=== PATIENT | male | born 1990 | race Two or more races ===

== ENCOUNTER 2016-05-21 08:17 | Emergency (ER) | payer MEDICAID ==
[2016-05-21 08:21] VITALS: BP 121/72; PULSE 96; RESP 20; TEMP 97.5; O2SAT 94
[2016-05-21] MEDS ORDERED: OXYCODONE/APAP 5/325 TAB PO ONE (08:27)
[2016-05-21] MEDS ORDERED: TDAP ADULT 0.5 ML INJ (BOOSTRIX) IM ONE (08:28)
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
[2016-05-21] MEDS ORDERED: TETANUS, DIPHTHERIA TOX (7YR+) 0.5 ML INJ IM ONE (08:55)
== END 2016-05-21 09:38 | disposition home or self-care (01) ==
PROC: 3E0234Z Introduction of Serum, Toxoid and Vaccine into Muscle, Percutaneous Approach (ICD-10-PCS; principal; 2016-05-21)
DX: S63.92XA Sprain of unspecified part of left wrist and hand, initial encounter (principal); F17.200 Nicotine dependence, unspecified, uncomplicated; Z23 Encounter for immunization; W22.8XXA Striking against or struck by other objects, initial encounter

== ENCOUNTER 2016-05-23 17:48 | Inpatient (IN) | payer MEDICAID ==
[2016-05-23] MEDS ORDERED: HYDROmorphONE/DILAUDID 1 MG/ML SYR IVP ONE ×3 (19:29→23:43)
[2016-05-23] MEDS ORDERED: NS 1,000 ML IV ONE (19:29)
[2016-05-23] MEDS ORDERED: ONDANSETRON 4 MG/2 ML VIAL IVP ONE (19:29)
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
[2016-05-23 20:07] LABS: % IMMATURE GRANULYOCYTES 0.5 % (0.0-1.1); ABSOLUTE IMMATURE GRANULOCYTES 0.04 10^3/uL (0.00-0.10); ADD DIFF? NO; ADD MORPH? NO; ADD SCAN? NO; ATYPICAL LYMPHOCYTE FLAG 0 (0-99); FRAGMENT RBC FLAG 0 (0-99); HEMATOCRIT 44.5 % (40.0-51.0); LEFT SHIFT FLG 0 (0-99); LIPEMIA HEMOLYSIS FLAG 90 (0-99); MEAN CELL HEMOGLOBIN 31.7 pg (27.9-34.1); MEAN CELL VOLUME 88.1 fL (81.5-99.8); MEAN PLATELET VOLUME 11.1 fL (8.7-11.7); PLATELET CLUMPS FLAG 0 (0-99); PLATELET COUNT 203 10^3/uL (150-400); RED BLOOD CELL COUNT 5.05 10^6/uL (4.40-6.38); RED CELL DISTRIBUTION WIDTH 12.9 % (11.5-15.2)
[2016-05-23 20:38] LABS: ANION GAP 14 mEq/L (8-16); C-REACTIVE PROTEIN 49.2 mg/L (<10.0); CALCIUM 9.5 mg/dL (8.5-10.4); CARBON DIOXIDE 26 mEq/l (22-31); CHLORIDE 99 mEq/L (97-110); CREATININE 0.9 mg/dL (0.7-1.3); GLOMERULAR FILTRATION RATE > 60; GLUCOSE 99 mg/dL (70-100); SODIUM 139 mEq/L (134-144); SPECIMEN HEMOLYSIS 145
[2016-05-23 20:39] LABS: POTASSIUM 3.9 mEq/L (3.3-5.0)
[2016-05-23 20:53] LABS: SEDIMENTATION RATE 18 MM/HR (0-15)
[2016-05-23] MEDS ORDERED: GADOBUTROL 10 ML VIAL IVP ONE (21:29)
[2016-05-23] MEDS ORDERED: VANCOMYCIN HCL/NORMAL SALINE 250 ML IV ONE (22:06)
[2016-05-23] MEDS ORDERED: PIPERACILLIN/TAZO 4.5 GM/DEX 100 ML IV ONE (22:06)
[2016-05-23] MEDS ORDERED: HYDROmorphONE/DILAUDID 1 MG/ML SYR ONE (22:18)
[2016-05-23] MEDS ORDERED: LORazepam 0.5 MG TAB PO PRN (23:54)
[2016-05-23] MEDS ORDERED: HYDROmorphONE/DILAUDID 1 MG/ML SYR IVP PRN (23:54)
[2016-05-23] MEDS ORDERED: ONDANSETRON 4 MG/2 ML VIAL IVP PRN (23:54)
[2016-05-23] MEDS ORDERED: ONDANSETRON DISINTEGRATING 4 MG TAB PO PRN (23:54)
[2016-05-24] MEDS: oxyCODONE IR 5 MG TAB PO PRN ×4 (00:58→19:44)
[2016-05-24] MEDS: HYDROmorphONE/DILAUDID 1 MG/ML SYR IVP PRN ×7 (01:30→23:51)
[2016-05-24] MEDS: NS 1,000 ML IV SCH ×2 (03:07→16:31)
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
[2016-05-24] MEDS: PIPERACILLIN/TAZO 3.375 GM/DEX 50 ML IV SCH ×4 (05:52→23:51)
[2016-05-24 06:20] LABS: % IMMATURE GRANULYOCYTES 0.4 % (0.0-1.1); ABSOLUTE IMMATURE GRANULOCYTES 0.03 10^3/uL (0.00-0.10); ADD DIFF? NO; ADD MORPH? NO; ADD SCAN? NO; ATYPICAL LYMPHOCYTE FLAG 0 (0-99); FRAGMENT RBC FLAG 0 (0-99); HEMATOCRIT 39.6 % (40.0-51.0); HEMOGLOBIN 13.5 g/dL (13.7-17.5); LEFT SHIFT FLG 0 (0-99); LIPEMIA HEMOLYSIS FLAG 90 (0-99); MEAN CELL HEMOGLOBIN 30.6 pg (27.9-34.1); MEAN CELL HEMOGLOBIN CONCENTR. 34.1 g/dL (32.4-36.7); MEAN CELL VOLUME 89.8 fL (81.5-99.8); MEAN PLATELET VOLUME 10.4 fL (8.7-11.7); PLATELET CLUMPS FLAG 10 (0-99); PLATELET COUNT 182 10^3/uL (150-400); RED BLOOD CELL COUNT 4.41 10^6/uL (4.40-6.38); RED CELL DISTRIBUTION WIDTH 12.9 % (11.5-15.2)
[2016-05-24 06:29] LABS: ANION GAP 7 mEq/L (8-16); CALCIUM 8.8 mg/dL (8.5-10.4); CARBON DIOXIDE 26 mEq/l (22-31); CHLORIDE 106 mEq/L (97-110); GLOMERULAR FILTRATION RATE > 60; GLUCOSE 99 mg/dL (70-100); POTASSIUM 4.7 mEq/L (3.5-5.2); SODIUM 139 mEq/L (134-144)
[2016-05-24 06:33] LABS: INR 1.09 (0.83-1.16)
[2016-05-24 06:34] LABS: APTT 34.3 SEC (23.0-38.0)
--- NOTE | 2016-05-24 14:40 | WOCRNPDOC ---
WOCRN Advanced Assessment Note - Skin Integrity Problem, Advanced Assess Left Posterior Hand Dressing Type: Adaptic Touch, Allevyn Life Exudate Amount: Scant Exudate Color: Red Exudate Characteristic(s): Serosanguinous Mikayla Wound Tissue: Erythema, Swollen Mikayla Wound Swelling: Moderate Wound Bed Color: Red Wound Bed Constitution: Smooth Tissue Site Odor: None Site Measurement - Head-to-Toe Length X Width X Depth (cm): 0.4cmx0.4cmx0.1cm Skin Integrity Problem Comment: Small, abrasion-like wound noted on the dorsal aspect of L hand proximal to 4th and 5th digits, w/ a small tissue flap partially approximated across wound bed. Erythema noted throughout L hand, w/ moderate swelling, but no fluctuance or purulence. Dressing w/ antimicrobial gel ordered.
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
[2016-05-24] MEDS ORDERED: HYDROCODONE/APAP 5/325 TAB PO PRN (17:07)
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
[2016-05-25] MEDS: HYDROmorphONE/DILAUDID 1 MG/ML SYR IVP PRN (03:59)
[2016-05-25] MEDS: NS 1,000 ML IV SCH ×2 (04:01→16:29)
[2016-05-25] MEDS: oxyCODONE IR 5 MG TAB PO PRN ×3 (05:51→22:20)
[2016-05-25] MEDS: PIPERACILLIN/TAZO 3.375 GM/DEX 50 ML IV SCH ×3 (05:52→19:35)
--- NOTE | 2016-05-25 10:27 | SOAPPROG ---
SOAP Progress Note Assessment/Plan: Assessment/Plan: draining abscess dorsal L hand HOD#1- pt states pain seems to be improving - Continue pain management - Continue IV antibiotics - Keep LUE elevated 05/25/16 10:23 Subjective: Pt states he is still having a lot of pain in the left hand, but it is improving since the antibiotics have been started. He has difficulty moving the 3rd, 4th, and 5th fingers secondary to pain. Pt denies fever, chills, chest pain, SOB, abdominal pain, N/V/D, numbness, tingling and calf pain. Objective: Vital Signs Temp Pulse Resp BP Pulse Ox 37.1 C 96 18 109/59 L 93 05/25/16 07:24 05/25/16 07:24 05/25/16 07:24 05/25/16 07:24 05/25/16 07:24 05/24/16 05/25/16 05/26/16 05:59 05:59 05:59 Intake Total 3380 Balance 3380 PT 14.0 SEC (12.0-15.0) 05/24/16 05:49 INR 1.09 (0.83-1.16) 05/24/16 05:49 Physical Exam - Physical Exam General Appearance: alert, no apparent distress Skin: normal color (minimal erythema surrounding the area of drainage on the dorsal L hand), warm/dry, other (Purulent drainage from the abscess site on the left dorsal hand) Extremities: normal capillary refill, swelling (dorsal aspect L hand), other ( Radial pulse 2+ b/l), No pedal edema, No calf tenderness, No Oma's sign Neuro/Psych: no motor/sensory deficits, alert, normal mood/affect ICD10 Worksheet Patient Problems: Problems Problem Status Onset Blunt trauma Acute Cellulitis of hand Acute
[2016-05-25] MEDS ORDERED: POLYETHYLENE GLYCOL 3350 17 GM PKT PO PRN (15:55)
[2016-05-25] MEDS ORDERED: BISACODYL 10 MG SUPP PR PRN (15:55)
[2016-05-25] MEDS ORDERED: LACTULOSE 20 GM/30 ML UDCUP PO PRN (15:55)
[2016-05-25] MEDS ORDERED: MAGNESIUM HYDROXIDE 30 ML UDCUP PO PRN (15:55)
--- NOTE | 2016-05-25 16:39 | HOSPPROG ---
Hospitalist Progress Note Assessment/Plan: He has a draining abscess of his left hand which will require greater than 48 hours of IV antibiotics to assess for improvement. Per consultation with Orthopedics they want to use 48 hours of IV antibiotics, repeat the MRI of his hand and then decide if he needs debridement in the operating room. -left hand abscess with MRSA by culture today. I have added vancomycin to his Zosyn. -disposition: He will require 1 or 2 days more of IV antibiotics and be reassessed for possible surgical debridement. Subjective: Reports he feels the pain is slightly less. He is continuing to have active drainage. I recommend that he keep the arm elevated. Objective: Vital Signs Temp Pulse Resp BP Pulse Ox 36.9 C 85 18 130/66 H 96 05/25/16 15:26 05/25/16 15:26 05/25/16 15:26 05/25/16 15:26 05/25/16 15:26 05/24/16 05/25/16 05/26/16 05:59 05:59 05:59 Intake Total 3380 Balance 3380 PT 14.0 SEC (12.0-15.0) 05/24/16 05:49 INR 1.09 (0.83-1.16) 05/24/16 05:49 - Time Spent With Patient Time Spent with Patient: greater than 25 minutes Time Spent with Patient: Greater than 25 minutes spent on this patients care, greater than 50% of time spent counseling, educating, and coordinating care regarding the above mentioned plan. - Pending Discharge Pending Discharge Within 24 Hours: No Pending Discharge Within 48 Hours: No - Physical Exam Constitutional: no apparent distress Eyes: PERRL Ears, Nose, Mouth, Throat: moist mucous membranes Cardiovascular: regular rate and rhythym, no murmur, rub, or gallop Respiratory: no respiratory distress, no rales or rhonchi, clear to auscultation Gastrointestinal: normoactive bowel sounds, soft, non-tender abdomen, no palpable masses Musculoskeletal: other (Left hand shows swelling and erythema with drainage on the dorsum. He has difficulty moving his 3rd 4th and 5th fingers. There is no ascending cellulitis. No adenopathy in the left axillary region.) ICD10 Worksheet Patient Problems: Problems Problem Status Onset Cellulitis of hand Acute Blunt trauma Acute
[2016-05-25] MEDS: VANCOMYCIN 1.25 GM in D5W 250 ML IV SCH (17:17)
[2016-05-25] MEDS: SENNOSIDES/DOCUSATE SODIUM TAB PO SCH (22:11)
[2016-05-26] MEDS: PIPERACILLIN/TAZO 3.375 GM/DEX 50 ML IV SCH ×2 (01:35→05:52)
[2016-05-26] MEDS: oxyCODONE IR 5 MG TAB PO PRN ×3 (01:39→09:09)
[2016-05-26] MEDS: VANCOMYCIN 1.25 GM in D5W 250 ML IV SCH ×2 (04:13→17:03)
[2016-05-26] MEDS: NS 1,000 ML IV SCH ×2 (04:13→05:52)
[2016-05-26] MEDS: SENNOSIDES/DOCUSATE SODIUM TAB PO SCH ×2 (09:09→19:56)
--- NOTE | 2016-05-26 09:50 | SOAPPROG ---
SOAP Progress Note Assessment/Plan: Assessment/Plan: draining abscess dorsal L hand HOD#2- pt states pain seems to be improving - Continue pain management - Continue IV antibiotics - Keep LUE elevated - Will review MRI once completed 05/25/16 10:23 05/26/16 09:47 Subjective: Pt states he had trouble sleeping last night secondary to pain, but he thinks his fingers move more easily. Pt denies fever, chills, chest pain, SOB, abdominal pain, N/V/D, numbness, tingling and calf pain. Objective: Vital Signs Temp Pulse Resp BP Pulse Ox 37.0 C 72 16 97/53 L 94 05/26/16 07:43 05/26/16 07:43 05/26/16 07:43 05/26/16 07:43 05/26/16 07:43 05/25/16 05/26/16 05/27/16 05:59 05:59 05:59 Intake Total 3380 3100 250 Output Total 6 Balance 3380 3094 250 PT 14.0 SEC (12.0-15.0) 05/24/16 05:49 INR 1.09 (0.83-1.16) 05/24/16 05:49 Physical Exam - Physical Exam General Appearance: alert, no apparent distress Skin: normal color, warm/dry, other (Edema over the left dorsal hand. Wound with purulent drainage to the surface.) Extremities: normal capillary refill, swelling (Dorsal hand), No normal range of motion (Decreased ROM in the left hand secondary to pain), No pedal edema, No calf tenderness, No Oma's sign Neuro/Psych: no motor/sensory deficits, alert, normal mood/affect ICD10 Worksheet Patient Problems: Problems Problem Status Onset Blunt trauma Acute Cellulitis of hand Acute
[2016-05-26] MEDS: HYDROmorphONE/DILAUDID 2 MG TAB PO PRN ×3 (11:27→19:54)
[2016-05-26 11:41] LABS: % IMMATURE GRANULYOCYTES 0.6 % (0.0-1.1); ABSOLUTE IMMATURE GRANULOCYTES 0.04 10^3/uL (0.00-0.10); ADD DIFF? NO; ADD MORPH? NO; ADD SCAN? NO; ATYPICAL LYMPHOCYTE FLAG 10 (0-99); FRAGMENT RBC FLAG 0 (0-99); HEMATOCRIT 43.2 % (40.0-51.0); HEMOGLOBIN 14.9 g/dL (13.7-17.5); LEFT SHIFT FLG 0 (0-99); LIPEMIA HEMOLYSIS FLAG 90 (0-99); MEAN CELL HEMOGLOBIN CONCENTR. 34.5 g/dL (32.4-36.7); MEAN CELL VOLUME 86.9 fL (81.5-99.8); MEAN PLATELET VOLUME 9.7 fL (8.7-11.7); PLATELET CLUMPS FLAG 0 (0-99); PLATELET COUNT 230 10^3/uL (150-400); RED BLOOD CELL COUNT 4.97 10^6/uL (4.40-6.38); RED CELL DISTRIBUTION WIDTH 12.5 % (11.5-15.2)
[2016-05-26] MEDS ORDERED: GADOBUTROL 10 ML VIAL IVP ONE (12:12)
--- NOTE | 2016-05-26 13:22 | HOSPPROG ---
Hospitalist Progress Note Assessment/Plan: Assessment: 25-year-old male presents with acute left upper extremity cellulitis and possibly evolving tenosynovitis Plan: 1. Cellulitis. Acute, new problem this provider, further workup indicated. MRSA on culture, left upper extremity, no evidence of abscess on initial MRI, physical exam reveals inability to extend digits 4 in 5, raising possibility of evolving tenosynovitis -get MRI of the left hand as well as left wrist to eval for Teno versus abscess -appreciate ongoing orthopedics consultation, please see results of study once performed determine whether washout necessary -infectious Disease consultation placed as the area does not appear to be clinically resolving -received 3 days of Zosyn, transitioned to vancomycin on 05/25 given culture results -day to vancomycin, continue -continue local wound care -continue pain control, adjust to an oral Dilaudid with bowel regimen Diet. Regular Prophylaxis. High risk patient, SCDs when in bed, holding pharmacologic prophylaxis given possible surgery Code. Full Disposition. Anticipated discharge uncertain this time, pending clinical resolution of affected area. Patient remains high complexity, high risk patient given use IV antibiotics with adjustment as well as further workup for possible limb threatening infection. Subjective: Current pain control is adequate Objective: Vital Signs Temp Pulse Resp BP Pulse Ox 37.0 C 72 16 97/53 L 94 05/26/16 07:43 05/26/16 07:43 05/26/16 07:43 05/26/16 07:43 05/26/16 07:43 Laboratory Results 05/26/16 11:31 05/25/16 05/26/16 05/27/16 05:59 05:59 05:59 Intake Total 3380 3100 250 Output Total 6 Balance 3380 3094 250 PT 14.0 SEC (12.0-15.0) 05/24/16 05:49 INR 1.09 (0.83-1.16) 05/24/16 05:49 - Physical Exam Constitutional: no apparent distress, appears nourished, uncomfortable, No not in pain Cardiovascular: regular rate and rhythym, no murmur, rub, or gallop, No edema Respiratory: no respiratory distress, no rales or rhonchi, clear to auscultation Gastrointestinal: normoactive bowel sounds, soft, non-tender abdomen, no palpable masses Skin: other (Erythema and tenderness over the dorsum of the left hand with pustulant drainage, soft tissue edema) Musculoskeletal: other (Full range of motion of the left elbow, limited range of motion of the left elbow on extension with active pain, limited range of motion of digits 4 and 5 on extension secondary to pain on the left upper extremity, full range of motion of digits 1 2 and 3 without particular pain) Neurologic: AAOx3, sensation intact bilaterally, No facial droop Psychiatric: interacting appropriately, not anxious, not encephalopathic, thought process linear ICD10 Worksheet Patient Problems: Problems Problem Status Onset Cellulitis of hand Acute Blunt trauma Acute
[2016-05-26] MEDS: ACETAMINOPHEN 325 MG TAB PO PRN (14:12)
--- NOTE | 2016-05-26 19:06 | SOAPPROG ---
SOAP Progress Note Assessment/Plan: Assessment: Likely septic 4th and possible 5th MCP joints and possibly Bone involvement of 5th MC head. Plan: TO OR tomorrow for formal I+D and drainage of joint(s). No involucrum, or sequestrum identified so unlikely to address bone involvement. Continue IV abx Pt aware of surgery tomorrow. NPA 05/26/16 19:03 Subjective: Still hurts and can not move IV and V well Objective: Vital Signs Temp Pulse Resp BP Pulse Ox 36.3 C 75 18 107/70 94 05/26/16 17:00 05/26/16 17:00 05/26/16 17:00 05/26/16 17:00 05/26/16 17:00 Laboratory Results 05/26/16 11:31 05/25/16 05/26/16 05/27/16 05:59 05:59 05:59 Intake Total 3380 3100 1999 Output Total 6 Balance 3380 3094 1999 PT 14.0 SEC (12.0-15.0) 05/24/16 05:49 INR 1.09 (0.83-1.16) 05/24/16 05:49 Symptoms marginally improved in regards to pain. Still has drainage. Repeat MRI completed - Now with distended 5th MCP and minimally 4th MCP effusion. Tendon sheaths do not appear involved ICD10 Worksheet Patient Problems: Problems Problem Status Onset Blunt trauma Acute Cellulitis of hand Acute MRSA (methicillin resistant Staphylococcus aureus) Acute ~05/23/16
[2016-05-26] MEDS ORDERED: ALTEPLASE 2 MG VIAL IVP PRN (19:14)
[2016-05-26] MEDS: HYDROmorphONE/DILAUDID 1 MG/ML SYR IVP PRN (22:40)
[2016-05-27] MEDS: NS 1,000 ML IV SCH ×2 (04:23→13:13)
[2016-05-27] MEDS: HYDROmorphONE/DILAUDID 1 MG/ML SYR IVP PRN ×4 (04:36→20:19)
[2016-05-27 05:02] LABS: CALCIUM 9.5 mg/dL (8.5-10.4); CARBON DIOXIDE 23 mEq/l (22-31); CHLORIDE 105 mEq/L (97-110); CREATININE 0.7 mg/dL (0.7-1.3); GLOMERULAR FILTRATION RATE > 60; GLUCOSE 100 mg/dL (70-100); SODIUM 139 mEq/L (134-144)
[2016-05-27 05:10] LABS: ANION GAP 11 mEq/L (8-16); POTASSIUM 4.3 mEq/L (3.5-5.2)
[2016-05-27] MEDS ORDERED: VANCOMYCIN 1.5 GM in D5W 250 ML IV SCH (06:00)
[2016-05-27] MEDS: VANCOMYCIN 1.25 GM in D5W 250 ML IV SCH (06:23)
[2016-05-27 06:25] LABS: % IMMATURE GRANULYOCYTES 0.4 % (0.0-1.1); ABSOLUTE IMMATURE GRANULOCYTES 0.03 10^3/uL (0.00-0.10); ADD DIFF? NO; ADD MORPH? NO; ADD SCAN? NO; ATYPICAL LYMPHOCYTE FLAG 20 (0-99); FRAGMENT RBC FLAG 0 (0-99); HEMOGLOBIN 14.6 g/dL (13.7-17.5); LEFT SHIFT FLG 0 (0-99); LIPEMIA HEMOLYSIS FLAG 90 (0-99); MEAN CELL HEMOGLOBIN 30.3 pg (27.9-34.1); MEAN CELL HEMOGLOBIN CONCENTR. 34.8 g/dL (32.4-36.7); MEAN CELL VOLUME 87.1 fL (81.5-99.8); MEAN PLATELET VOLUME 10.4 fL (8.7-11.7); PLATELET CLUMPS FLAG 0 (0-99); PLATELET COUNT 210 10^3/uL (150-400); RED BLOOD CELL COUNT 4.82 10^6/uL (4.40-6.38); RED CELL DISTRIBUTION WIDTH 12.2 % (11.5-15.2)
[2016-05-27] MEDS: SENNOSIDES/DOCUSATE SODIUM TAB PO SCH ×2 (08:40→20:34)
[2016-05-27] MEDS: ACETAMINOPHEN 325 MG TAB PO PRN ×2 (08:49→20:34)
--- NOTE | 2016-05-27 09:55 | PDIAF ---
- Diagnosis Diagnosis: MRSA Septic arthritis and OM L 5th [facility] Code Status: Full Code - Medication Management Discharge Medications: Medications to Continue on Transfer NK [No Known Home Meds] 05/24/16 [Last Taken Unknown] Long-Term Antibiotics: daptomycin 450mg IV daily Treasury Representative Antibiotic Stop Date: 07/08/16 Discharge Medications: Refer to the Discharge Home Medication list for PRN reason. PICC Care - Routine: Yes - Orders Services needed: Home Care, Registered Nurse Home Care Face to Face: I certify that this patient was under my care and that I had the required [id number] encounter meeting the encounter requirements on the discharge day. My findings support the fact that the patient is homebound as defined in CMS Chapter 7 Medicare Benefits Manual 30.1.1, The condition of the patient is such that there exists a normal inability to leave home and consequently, leaving home would require a considerable and taxing effort. - Labs/Radiology CBC Date: 05/30/16 (Monday weekly) CMP Date: 05/30/16 (Monday weekly) CRP Date: 05/30/16 CPK Date: 05/30/16 Call or Fax Lab and Imaging Results to: leeroy [phone] - Follow Up Care Current Providers and Referrals: NONE *PRIMARY CARE P,. [Primary Care Provider] - As per Instructions Viky Gordon MD [Medical Doctor] - 06/07/16 1:00 pm
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
[2016-05-27] MEDS: DAPTOmycin 450 MG in NS 100 ML IV SCH (13:13)
[2016-05-27] MEDS ORDERED: BUPIVACAINE 0.5% 30 ML SDV ONE (14:30)
[2016-05-27] MEDS ORDERED: MIDAZOLAM 2 MG/2 ML VIAL ONE (14:56)
[2016-05-27] MEDS ORDERED: METOCLOPRAMIDE 10 MG/2 ML VIAL ONE (15:05)
[2016-05-27] MEDS ORDERED: fentaNYL 100 MCG/2 ML INJ ONE ×3 (15:05→16:09)
[2016-05-27] MEDS ORDERED: PROPOFOL 200 MG/20 ML VIAL ONE (15:05)
--- NOTE | 2016-05-27 16:12 | POSTOPPROG ---
Post Op Note Date of Operation: 05/27/16 Surgeon: Juan M Brand Reimbursement Auditor: None Anesthesiologist: Chato Anesthesia: LMA Pre-op Diagnosis: Septic Left 5th MCP joint Post-op Diagnosis: Same Procedure: I+D including joint debridement Left 5th MCP Findings: Small amount of pus within 5th MCP joint. Obvious communication to skin Inf/Abcess present in the surg proc area at time of surgery?: Yes Depth: Deep Incisional (Fascial) EBL: Minimal (Known abscess at initiation of surgery.)
[2016-05-27] MEDS ORDERED: HYDROmorphONE/DILAUDID 1 MG/ML SYR ONE (16:16)
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
[2016-05-27] MEDS ORDERED: HYDROmorphONE/DILAUDID 2 MG/ML INJ ONE (17:40)
--- NOTE | 2016-05-27 17:40 | HOSPPROG ---
Hospitalist Progress Note Assessment/Plan: Assessment: 25-year-old male presents with acute MRSA septic arthritis w/ possible osteomyelitis Plan: 1. Septic arthritis. MRSA on wound Cx, 5th MCP, s/p I&D by Dr. Brand 05/27 - d/w Dr. Gordon, plan on long course Abx for possible osteomyelitis, 4 weeks dapto IV w/ PICC placed - severe pain at site post-op, requiring increase in PRN IV dilaudid dose and frequency, cycle in PO dilaudid - cont bowel regimen - ice, outpt wound care and ID f/u Diet. Regular Prophylaxis. High risk patient, SCDs when in bed, holding pharmacologic prophylaxis given possible surgery Code. Full Disposition. Anticipated discharge 05/28, requiring frequent q2hr IV pain Rx at present. Subjective: Patient reports severe pain in left hand despite receiving 1 mg of IV Dilaudid Objective: Vital Signs Temp Pulse Resp BP Pulse Ox 36.5 C 79 18 137/97 H 93 05/27/16 16:55 05/27/16 16:55 05/27/16 16:55 05/27/16 16:55 05/27/16 16:55 Laboratory Results 05/27/16 06:06 05/27/16 04:30 05/26/16 05/27/16 05/28/16 05:59 05:59 05:59 Intake Total 3100 3450 838 Output Total 6 0 Balance 3094 3450 838 PT 14.0 SEC (12.0-15.0) 05/24/16 05:49 INR 1.09 (0.83-1.16) 05/24/16 05:49 - Pending Discharge Pending Discharge Within 24 Hours: Yes Pending Discharge Date: 05/28/16 Pending Discharge Time: 11:00 - Physical Exam Constitutional: appears nourished, uncomfortable, No no apparent distress ( Moderate distress), No not in pain Cardiovascular: tachycardia, No systolic murmur, No irregularly irregular, No edema Respiratory: no respiratory distress, no rales or rhonchi, clear to auscultation Gastrointestinal: soft, non-tender abdomen, no palpable masses, No normoactive bowel sounds (Hypoactive bowel sounds) Musculoskeletal: other (Pain with movement and extension of digits 4 and 5 on left upper extremity, pain with extension of left wrist) Neurologic: AAOx3, sensation intact bilaterally (Left distal fingers), No weakness (Motor intact in digits 1-3 left upper extremity) Psychiatric: interacting appropriately, not encephalopathic, thought process linear, anxious, No agitated ICD10 Worksheet Patient Problems: Problems Problem Status Onset MRSA (methicillin resistant Staphylococcus aureus) Acute ~05/23/16 Cellulitis of hand Acute Blunt trauma Acute
[2016-05-27] MEDS: HYDROmorphONE/DILAUDID 2 MG TAB PO PRN ×2 (18:35→22:40)
[2016-05-28] MEDS: HYDROmorphONE/DILAUDID 1 MG/ML SYR IVP PRN (00:58)
[2016-05-28] MEDS: HYDROmorphONE/DILAUDID 2 MG TAB PO PRN ×2 (06:18→12:38)
[2016-05-28 06:44] LABS: % IMMATURE GRANULYOCYTES 0.5 % (0.0-1.1); ABSOLUTE IMMATURE GRANULOCYTES 0.04 10^3/uL (0.00-0.10); ADD DIFF? NO; ADD MORPH? NO; ADD SCAN? NO; ATYPICAL LYMPHOCYTE FLAG 30 (0-99); FRAGMENT RBC FLAG 0 (0-99); HEMATOCRIT 41.5 % (40.0-51.0); HEMOGLOBIN 14.7 g/dL (13.7-17.5); LEFT SHIFT FLG 0 (0-99); LIPEMIA HEMOLYSIS FLAG 90 (0-99); MEAN CELL HEMOGLOBIN 30.2 pg (27.9-34.1); MEAN CELL HEMOGLOBIN CONCENTR. 35.4 g/dL (32.4-36.7); MEAN CELL VOLUME 85.2 fL (81.5-99.8); MEAN PLATELET VOLUME 10.9 fL (8.7-11.7); PLATELET CLUMPS FLAG 10 (0-99); PLATELET COUNT 158 10^3/uL (150-400); RED BLOOD CELL COUNT 4.87 10^6/uL (4.40-6.38); RED CELL DISTRIBUTION WIDTH 12.2 % (11.5-15.2)
[2016-05-28 06:49] LABS: ALANINE AMINOTRANSFERASE 61 IU/L (21-72); ALBUMIN 4.1 g/dL (3.5-5.0); ALKALINE PHOSPHATASE 97 IU/L (38-126); ANION GAP 10 mEq/L (8-16); ASPARTATE AMINOTRANSFERASE 37 IU/L (17-59); BILIRUBIN,TOTAL 0.7 mg/dL (0.1-1.4); CALCIUM 9.5 mg/dL (8.5-10.4); CARBON DIOXIDE 26 mEq/l (22-31); CHLORIDE 103 mEq/L (97-110); CREATININE 0.6 mg/dL (0.7-1.3); GLOMERULAR FILTRATION RATE > 60; GLUCOSE 96 mg/dL (70-100); POTASSIUM 4.4 mEq/L (3.5-5.2); SODIUM 139 mEq/L (134-144); TOTAL PROTEIN 7.3 g/dL (6.3-8.2)
[2016-05-28] MEDS: DAPTOmycin 450 MG in NS 100 ML IV SCH (08:44)
[2016-05-28] MEDS: SENNOSIDES/DOCUSATE SODIUM TAB PO SCH (08:47)
[2016-05-28] MEDS ORDERED: NAPROXEN SODIUM 220 MG TAB PO SCH (10:30)
--- NOTE | 2016-05-28 10:39 | PDIAF ---
- Diagnosis Diagnosis: MRSA Septic arthritis and OM L 5th MCP Code Status: Full Code - Medication Management Discharge Medications: Medications to Continue on Transfer Acetaminophen [Tylenol 325mg (*)] 650 mg PO Q4HRS PRN #0 tab 05/28/16 [Last Taken Unknown] DAPTOmycin [Cubicin] 450 mg IV DAILY #41 ml 05/28/16 [Last Taken Unknown] HYDROmorphone HCL [Dilaudid 2 mg (*)] 2 - 4 mg PO Q4HRS PRN #50 tab 05/28/16 [ Last Taken Unknown] Naproxen 500 mg PO BID PRN #40 tablet 05/28/16 [Last Taken Unknown] Sennosides/Docusate Sodium [Senokot-S] 1 tab PO BID #40 tab 05/28/16 [Last Taken Unknown] Ice Guard Tester Antibiotics: daptomycin 450mg IV daily Ice Guard Tester Antibiotic Stop Date: 07/08/16 Discharge Medications: Refer to the Discharge Home Medication list for PRN reason. PICC Care - Routine: Yes - Orders Services needed: Home Care, Registered Nurse Home Care Face to Face: I certify that this patient was under my care and that I had the required khyf-di-[id number] encounter meeting the encounter requirements on the discharge day. My findings support the fact that the patient is homebound as defined in CMS Chapter 7 Medicare Benefits Manual 30.1.1, The condition of the patient is such that there exists a normal inability to leave home and consequently, leaving home would require a considerable and taxing effort. Diet Recommendation: no restrictions on diet Wound Care Instructions: please keep area clean and dry, full instructions per Dr. Brand Activity/Weight Bearing Restrictions: limited weight bearing left hand, follow instructions per Dr. Brand - Labs/Radiology CBC Date: 05/30/16 (Monday weekly) CMP Date: 05/30/16 (Monday weekly) CRP Date: 05/30/16 (Monday weekly) CPK Date: 05/30/16 Call or Fax Lab and Imaging Results to: leeroy [phone] - Follow Up Care Current Providers and Referrals: Viky Gordon MD [Medical Doctor] - 06/07/16 1:00 pm NONE *PRIMARY CARE P,. [Primary Care Provider] - As per Instructions Juan M Brand MD [Medical Doctor] - follow up in 1 week
--- NOTE | 2016-05-28 10:45 | PDDCSUM ---
Discharge Summary Discharge Summary: DISCHARGE SUMMARY FOLLOW-UP ITEMS: Reassess wound and dressing as outpatient DATE OF ADMISSION: 05/23/2016 DATE OF DISCHARGE: 05/28/2016 DISCHARGE DIAGNOSES: 1. Septic arthritis secondary to MRSA at 5th MCP 2. Possible osteomyelitis CONSULTATIONS: Dr. Brand from orthopedics, Dr. Gordon from Infectious Disease PROCEDURES / IMAGING: Incision and drainage on 05/27/2016, PICC line insertion CHIEF COMPLAINT: Acute hand pain SUBJECTIVE: Patient continues to have some ongoing pain, controlled well with oral pain medication PHYSICAL EXAM ON DISCHARGE: Systolic blood pressure is 1/10, heart rate 80, afebrile overnight, satting well on room air, digits 1 2 and 3 have good flexion and extension, digits 4 and 5 have impaired extension secondary to pain and impaired flexion secondary to pain, sensation is intact in all digits on the left upper extremity, improved range of motion at the left wrist with some pain persistently associated with extension, mild pain over the posterior aspect of left forearm LABS ON DISCHARGE: HOSPITAL COURSE BY PROBLEM: 1. Septic arthritis 5th left MCP secondary to MRSA. Patient experienced trauma to his left hand, dorsal surface, initially appeared to be cellulitic but then evolved into fulminant septic arthritis and required incision and drainage by Dr. Brand. Patient was initiated on vancomycin and transition to daptomycin per Infectious Disease. The patient will follow up with both Orthopedics and Infectious Disease for wound care management as well as antibiotic monitoring. He will receive home IV antibiotics. Pain control extended hospitalization and on the evening of 05/2016, the patient was requiring IV Dilaudid high-dose q.2 hours. We were able to cycle in oral Dilaudid and his pain management improved. He will also be discharged on as needed naproxen and Senokot S to prevent constipation. 2. Possible osteomyelitis. Located in the left hand, no bone was removed, patient will receive extended course of antibiotics, notably 6 weeks. DISCHARGE MEDICATIONS: Please see official discharge medication reconciliation sheet in chart , Dilaudid 2 mg as needed every 4 hours, 50 tabs prescribed, naproxen 500 mg twice daily as needed, Senokot S twice daily as needed, daptomycin 450 mg IV daily. DISCHARGE INSTRUCTIONS: Patient should follow up with Dr. Brand within 1 week and he has a scheduled appointment with Dr. Gordon on 06/07. He should avoid heavy lifting with the left upper extremity and keep the affected area clean dry and intact. TIME SPENT: Greater than 30 minutes were spent on direct patient care, as well as discharge planning and preparation.
--- NOTE | 2016-05-28 12:41 | SOAPPROG ---
SOAP Progress Note Assessment/Plan: Assessment: Doing OK now. Plan: Work on ROM as best possible (I showed him how). Keep dressing Dry. Did not find evidence of bone penetration at exploration yesterday. Minimal pus encountered in 5th MCPJ. Cont IV abx. 05/26/16 19:03 05/28/16 12:36 Subjective: Hurt bad last night Objective: Vital Signs Temp Pulse Resp BP Pulse Ox 36.7 C 76 18 106/75 93 05/28/16 09:37 05/28/16 09:37 05/28/16 09:37 05/28/16 09:37 05/28/16 09:37 Laboratory Results 05/28/16 06:20 05/28/16 06:20 05/27/16 05/28/16 05/29/16 05:59 05:59 05:59 Intake Total 3450 1488 Output Total 0 Balance 3450 1488 PT 14.0 SEC (12.0-15.0) 05/24/16 05:49 INR 1.09 (0.83-1.16) 05/24/16 05:49 Dressing changed. Wound CDI, Drain output minimal and I was unable to express any drainage from drain track after I removed it. ICD10 Worksheet Patient Problems: Problems Problem Status Onset Blunt trauma Acute Cellulitis of hand Acute MRSA (methicillin resistant Staphylococcus aureus) Acute ~05/23/16
[2016-05-28 14:18] VITALS: BP 114/69; PULSE 68; RESP 16; TEMP 98.4; O2SAT 95
[2016-05-28 15:19] LABS: HEPATITIS Bs Ab QUANT <5.0 mIU/mL
--- NOTE | 2016-06-01 10:55 | PQFORM ---
PHYSICIAN QUERY FORM Needs Your Response This query form is being sent to you to assure this patient record is coded properly. Please respond to the question below: PHARMACOLOGY ASSOCIATE QUESTION: Dear Dr. Brand, For coding purposes (there is a different code choice for excisional versus non excisional debridement)- please clarify if the debridement done on 27 May 2016 was: ___~ Excisional _X_~ Non Excisional ___~ Other Thank You [facility]/Coding Dept. [phone] INSTRUCTIONS FOR RESPONSE: Answer question by clicking on the "Edit Document" button. Move cursor to area below the stars. When complete, hit "Save." Click on the "Sign" button, then click "Sign" again. Type in your PIN and hit "Enter." MTDD
== END 2016-05-28 16:27 | disposition home health service (06) | DRG 506 ==
LOC: F1N 05-24 00:45 → OBSVTOIN 05-24 17:08
PROVIDERS: ADMIT Internal Medicine; ATTEND Internal Medicine
PROC: 0JDK0ZZ Extraction of Left Hand Subcutaneous Tissue and Fascia, Open Approach (ICD-10-PCS; principal; 2016-05-27 14:30)
PROC: 0R9 Upper Joints, Drainage (ICD-10-PCS; principal; 2016-05-27 14:30)
PROC: 02HV33Z Insertion of Infusion Device into Superior Vena Cava, Percutaneous Approach (ICD-10-PCS; 2016-05-27 14:30)
DX: M00.042 Staphylococcal arthritis, left hand (principal); M86.142 Other acute osteomyelitis, left hand; L03.114 Cellulitis of left upper limb; B95.62 Methicillin resistant Staphylococcus aureus infection as the cause of diseases classified elsewhere; Z72.0 Tobacco use
CPT/HCPCS: 96365; A9585; C1751; G0378; G0472; J0878; J1170; J2250; J2405; J2543; J2704; J2765; J3010; J3370

== ENCOUNTER 2016-09-07 18:09 | Emergency (ER) | payer MEDICAID ==
[2016-09-07 18:22] VITALS: RESP 16
[2016-09-07] MEDS ORDERED: PROPARACAINE 0.5% 15 ML OPHT DROP ONE (19:23)
[2016-09-07] MEDS ORDERED: FLUORESCEIN SODIUM 1 MG STRIP OP ONE ×2 (19:24→19:35)
--- NOTE | 2016-09-07 19:24 | EDPHY ---
H & P Stated Complaint: right swelling and irritated eye lid and eye Time Seen by Provider: 09/07/16 19:25 HPI/ROS: CHIEF COMPLAINT: Bilateral eye irritation HISTORY OF PRESENT ILLNESS: This patient is a 26-year-old male with remote history of corneal ulcer who presents to the Emergency Department complaining of bilateral eye irritation, worse on the right, beginning this morning. He describes burning pain to both eyes and mild discharge increasing in severity throughout today. He rates his pain as severity 10/10 earlier today. The pain is not exacerbated by eye movement. He denies changes to his vision. He has no additional complaints. No known exposures to anyone with conjunctivitis. He is not aware of any foreign body in his eye. No trauma. REVIEW OF SYSTEMS: A ten point review of systems was performed and is negative with the exception of the items mentioned in the HPI. 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 - Physical Exam Exam: General Appearance: Alert. Vital signs reviewed. Visual Acuity: noted from Nurse's notes. Pupils: Equal round and reactive to light, EOMI Lids: No edema or swelling Skin: No proptosis, no periorbital erythema or swelling, no vesicles Conjunctivae: Injected bilaterally, slight discharge on the right Cornea: Exam with fluorescein shows corneal abrasion to the right eye at approximately 1 o'clock Anterior chamber: Normal, no hyphema or hypopyon ENT, Mouth: Mucous membranes are moist, no oropharyngeal erythema or edema. Neck: No lymphadenopathy, supple. Respiratory: Lungs are clear to auscultation. Cardiovascular: Regular rate and rhythm. Extremities: No lower extremity edema, no calf tenderness or swelling. Neurological: Alert and oriented. Moving all four extremities easily and equally. Psychiatric: Normal affect. Constitutional: Initial Vital Signs Temperature (C) 36.9 C 09/07/16 18:19 Heart Rate 81 09/07/16 18:19 Respiratory Rate 16 09/07/16 18:19 Blood Pressure 119/78 09/07/16 18:19 O2 Sat (%) 98 09/07/16 18:19 O2 Delivery Mode Room Air Allergies/Adverse Reactions: No Known Allergies Allergy (Unverified 05/21/16 08:19) Home Medications: Medication Instructions Recorded Acetaminophen [Tylenol 325mg (*)] 650 mg PO Q4HRS PRN #0 tab 05/28/16 DAPTOmycin [Cubicin] 450 mg IV DAILY #41 ml 05/28/16 HYDROmorphone HCL [Dilaudid 2 mg 2 - 4 mg PO Q4HRS PRN #50 tab 05/28/16 (*)] Naproxen 500 mg PO BID PRN #40 tablet 05/28/16 Sennosides/Docusate Sodium 1 tab PO BID #40 tab 05/28/16 [Senokot-S] Hydrocodone/APAP 5/325 [Kingman 1 - 2 tab PO Q4 PRN #10 tab 09/07/16 5/325 (RX)] Ofloxacin 0.3% [Ocuflox 0.3% (RX)] 1 drops RTEYE QID #1 opht.btl 09/07/16 Medical Decision Making ED Course/Re-evaluation: Otherwise healthy 26-year-old male presents with complaint of bilateral eye irritation and pain, worse on the right. On eye exam, he has injected conjunctiva bilaterally. Fluorescein exam reveals a corneal abrasion to the right eye. Will treat with antibiotic eye drops. The patient has a scheduled appointment with an elementary spanish teacher on Monday. He is also given a referral to our on -call staffing administrator. I discussed Ibuprofen and Tylenol instructions with him to manage pain. I will provide him with Kingman to take as needed for severe pain. He is given customary return precautions and will be discharged home in good condition. Differential Diagnosis: I considered a differential diagnosis that includes but is not limited to conjunctivitis, retained foreign body, corneal abrasion, corneal ulcer, iritis, keratitis. - Data Points Medications Given: Discontinued Medications Fluorescein Sodium (Sptcz-D-Wmyek) 1 mg OP EDNOW ONE Stop: 09/07/16 19:36 Last Admin: 09/07/16 19:36 Dose: 1 mg Proparacaine HCl (Alcaine 0.5%) 1 drops RTEYE ONCE ONE Stop: 09/07/16 19:36 Last Admin: 09/07/16 19:36 Dose: 1 drop Departure - Departure Disposition: Home, Routine, Self-Care Clinical Impression: Corneal abrasion Qualifiers: Encounter type: initial encounter Laterality: right Qualified Code(s): S05.01XA - Injury of conjunctiva and corneal abrasion without foreign body, right eye, initial encounter Condition: Good Instructions: Corneal Abrasion (ED), Narcotic Pain Management (ED) Additional Instructions: 1. Follow-up with your eye doctor as scheduled on Monday. Make sure to call and ask if they are comfortable seeing you with a corneal abrasion. If not, we have included a referral to our on-call staffing administrator. 2. Take one tab Kingman every 4-6 hours as needed for pain. 3. Use the antibiotic eye drop to your right eye as prescribed. You may also use it in your left if the redness persists. 4. Do not wear contact lenses. 5. Return to the Emergency Department with changes to your vision, increasing pain, eyelid swelling, or for others serious concerns. Referrals: Julio Calvert MD [Medical Doctor] - As per Instructions Stand Alone Forms: Work Excuse Prescriptions: Hydrocodone/APAP 5/325 [Kingman 5/325 (RX)] 1 - 2 tab PO Q4 PRN #10 tab PRN Reason: pain Ofloxacin 0.3% [Ocuflox 0.3% (RX)] 1 drops RTEYE QID #1 opht.btl Report Scribed for: Soni Paz Report Scribed by: Laxmi Hope Date of Report: 09/07/16 Time of Report: 19:29 Physician Review and Approval Statement: 09/07/16 19:29 Portions of this note were transcribed by the medical appointment scheduler. I, Dr. Soni Paz, personally performed the history, physical exam, and medical decision- making; and confirmed the accuracy of the information in the transcribed note.
[2016-09-07] MEDS ORDERED: PROPARACAINE 0.5% 15 ML OPHT DROP RTEYE ONE (19:35)
[2016-09-07 19:53] VITALS: BP 121/78; PULSE 75; TEMP 98.1; O2SAT 96
== END 2016-09-07 19:53 | disposition home or self-care (01) ==
DX: S05.01XA Injury of conjunctiva and corneal abrasion without foreign body, right eye, initial encounter (principal); F17.200 Nicotine dependence, unspecified, uncomplicated; X58.XXXA Exposure to other specified factors, initial encounter